=== PATIENT | male | born 1950 | race Caucasian/White ===

== ENCOUNTER → 2020-05-30 13:31 | Outpatient (BNVA) | payer OTHER, SELFPAY | PROVIDERS: PCP Pediatrics; Referring Provider Pediatrics; Visit Provider Anesthesiology | DX: M96.1 Postlaminectomy syndrome, not elsewhere classified (principal); M54.5 Low back pain; G62.9 Polyneuropathy, unspecified; E11.40 Type 2 diabetes mellitus with diabetic neuropathy, unspecified; G89.4 Chronic pain syndrome | CPT/HCPCS: 99202 ==

== ENCOUNTER 2020-09-07 11:40 | Day surgery (SDC) | payer OTHER, SELFPAY ==
[2020-09-03 13:13] VITALS: BMI 31.1
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
[2020-09-07] VITALS (9 sets, daily range): BP systolic 120–140; BP diastolic 60–77; PULSE 48–67; RESP 15–18; TEMP 36.1–36.2; O2SAT 95–99
--- NOTE | ~2020-09-07 | FL_ITS ---
EXAMINATION: XR FLUOROSCOPY WITH IMAGES CLINICAL INFORMATION: Lumbar spinal cord stimulator revision COMPARISON: None. TECHNIQUE: Fluoroscopy performed by Dr. Maykel Gupta. Fluoroscopy time: 6.8 minutes DAP: 48 mGycm2 Images: 3 FINDINGS: Images demonstrate spinal stimulator in the lower thoracic spine. FL/FL guidance in OR IMPRESSION: Fluoroscopy guidance for lumbar spinal stimulator revision.
[2020-09-07] MEDS: Lactated Ringers 1,000 ML 100 ML IVCONT (12:43)
[2020-09-07 12:54] LABS: Glucose, Whole Blood 121 mg/dL (60-115)
--- NOTE | 2020-09-07 13:40 | MHC.SHP ---
Pre-Procedural Eval Section A The patient is an INPATIENT: No Changes since office visit: Yes Patient answered all questions The History & Physical has been completed within 30 days and I have reviewed it.: No Section B Chief Complaint: Post Laminectomy Syndrome Details of Present Illness: As above Relevant Family History (Specify if Yes): No Relevant Social History: Other (specify) Present Medications: see Short Stay Collaborative assessment Medical History: No relevant PMH History of Previous Operations: Relevant previous surgery/procedure and date(s) Allergies: Allergies Allergy/AdvReac Type Severity Reaction Status Date / Time amlodipine [From Lotrel] Allergy Anaphylaxis Verified 09/07/20 12:17 benazepril [From Lotrel] Allergy Anaphylaxis Verified 09/07/20 12:17 Review of Systems Sugical H&P ROS: Negative: Constitution, Cardiovascular, Respiratory, Neurological, Psychiatric, Hem-Onc, Allergic/Immunologic, Gastrointestinal, Genitourinary, Musculoskeletal, Integumentary, Endocrine and Eyes/Ears/Nose/Throat Exam Surgical H&P Exam: Normal: HEENT, Normal: Heart, Normal: Lungs, Normal: Extremities, Normal: Abdomen, Normal: Skin and Normal: Neurological Plan Diagnosis/Plan: Unchanged I have reviewed the history and physical and performed a pertinent physical examination on my patient. No changes have occurred unless specified.
--- NOTE | 2020-09-07 17:55 | P.BOP_ITS ---
Brief Operative Note Date of Service: 09/07/20 Pre-op diagnosis: Postlaminectomy syndrome Post-op diagnosis: same Procedure: Revision of spinal cord stimulator [employer] Implants: Wave web content writer battery alpha technology [employer] and 2 epidural leads [employer]. Surgeon: Maykel Gupta MD Anesthesia: MAC Estimated blood loss (mL): 30 Condition: stable Disposition: PACU
--- NOTE | 2020-09-07 17:55 | PM.OP ---
Brief Operative Note Date of Service: 09/07/20 Pre-op diagnosis: Postlaminectomy syndrome Post-op diagnosis: same Procedure: Revision of spinal cord stimulator [employer] Implants: Wave remote mortgage underwriter battery alpha technology [employer] and 2 epidural leads [employer]. Surgeon: Maykel Gupta MD Anesthesia: MAC Estimated blood loss (mL): 30 Condition: stable Disposition: PACU
--- NOTE | 2020-09-07 17:57 | P.OP_ITS ---
Operative Note Operative Note Date of Service: 09/07/20 Narrative: is very pleasant 69 years old gentleman who came today into the operating room for revision of spinal cord stimulator [employer] implanted for the treatment of pain related to postlaminectomy syndrome which stopped functioning due to presumable leads disconnection.. Preoperatively patient received 2 g cefazolin _approximately 30 minutes before the procedure. After obtaining informed consent patient was brought to the operating room, he was positioned prone on operating table, [employer] monitors were applied and patient was deeply sedated. Time-out was performed delineating correct site, side, the nature of the procedure, patient's allergy, preoperative antibiotic. All operating room staff was participating in OR time-out procedure. Patient's entire back was prepped with ChloraPrep twice and draped with full body drape including Ioban film. Attention 1st worse focused on the area of the implanted battery since the preoperative believe was that the problem is in the disconnection of the epidural leads from extensions the patient had with reimplantation of the last battery. Alongside the previous scar in the right upper buttock local anesthetic mixture of 1% lidocaine mixed with bupivacaine 0.5% was performed. After that incision 6.5 cm long was made alongside the previous incision. The spinal cord stimulator was located at the bottom of the wound. Thorough hemostasis was obtained. After that the spinal cord stimulator battery was freed from surrounding adhesions, the anchoring sutures were severed and the device was delivered to the surface of the patient's skin. The extension leads were located. The dissection alongside the extension leads was performed until the connection with epidural leads in the wound. The extensions were thoroughly dissected and disconnected. The epidural leads were connected to testing device and again demonstrated deficiency on the existing epidural lead electrodes. The decision was made to explore the midline back wound. The battery wound was thoroughly irrigated and packed with vancomycin containing normal saline. Sterilely draped C-arm was brought of over the operating field and picture of the existing epidural leads were located on the C-arm screen. Alongside the previous scar on midline of the patient's back in the projection of T11, T12 and L1 vertebrae mixture of anesthetics was injected and straight 7 cm incision was made alongside the previous scar. Thorough hemostasis was obtained. Dissection was performed to free the existing epidural leads from surrounding adhesions. Epidural leads were pulled from the side wounds into the central wound. Attempt was made to slide blue sheath introducer into the epidural space of the patient. That was not successful. The epidural leads were removed. After that at the projection of the right pedicle of L1 vertebra 14 gauge 10 cm introducer needle was used to advance to the patient's epidural space using loss of resistance to air technique on anterior posterior and lateral views toward T12- L1 epidural interspace. When needle entered the epidural space loss of resistance felt and the guitar wire was inserted into the needle demonstrating the spread of the wire into the epidural space. After that the epidural electrode array was inserted into the needle and advanced into the posterior epidural space mid body of T7 vertebra. That was the original position of previously inserted electrode. The same procedure was repeated on the left side and the epidural lead again was advanced to the area of T7 vertebra. After that patient was awaken and stimulation was applied. Unfortunately the responses of the patient at this time were inconclusive to make educated decision about the stimulation areas. After that the C-arm was brought in and anterior posterior and lateral views were demonstrated on the screen. It was noted that the left position electrode is slightly away from the previous position of the electrodes which patient had before. The decision was made to withdraw the electrode back to the T11 vertebra and advanced it again in the epidural space slightly right to the existing midline electrode array. Again the patient was asked about the stimulation. Unfortunately no conclusion was possible to make from his responses. The decision was made to continue anchoring the electrodes and finish the procedure. The irrigation normal saline with vancomycin was applied to both wounds. The anchors were dislodged on both epidural leads and they were fastened to the prevertebral fascia of with 2-0 Tycron sutures two sutures per anchor. The wound was irrigated again. The tunneling device was used to connect both wounds. The epidural leads were dislodged into the side wound, side wound was expanded, and irrigated again. Thorough hemostasis was obtained. Anchoring sutures were provided at the most lateral superior and medial superior corners of the wound. Anchoring sutures were connected to the orifices on the body of the battery. The waverider battery was connected to epidural electrodes and the epidural electrodes were screwed down on the battery. After that the wounds were irrigated again with normal saline mixed with vancomycin. 0 Vicryl suture was applied to close both wounds and after that 2-0 Vicryl sutures were used to approximate the level of the skin. Elaina were applied to the skin level. Bacitracin ointment was applied to the staple lines. Sterile dressing was applied. The patient at this moment was awaken he was transferred toilet PACU where he received another dose of antibiotic. Cefazolin 2 g. The patient recovered uneventfully.
[2020-09-07] MEDS: oxyCODONE HCl Immed Release 5 MG TABLET 10 MG PO (18:16)
[2020-09-07] MEDS: fentaNYL citrate/PF 100 MCG/2 ML VIAL 50 MCG IVPUSH (18:25)
[2020-09-07] MEDS: ceFAZolin Sodium/Dextrose,Iso 2 GM/50 ML PIGGYBACK IV (18:29)
[2020-09-07 18:41] LABS: Glucose, Whole Blood 113 mg/dL (60-115)
== END 2020-09-07 19:05 | disposition home or self-care (01) ==
PROVIDERS: PCP Pediatrics; Visit Provider Anesthesiology
PROC: (CPT 63663; principal; 2020-09-07 14:10)
DX: M96.1 Postlaminectomy syndrome, not elsewhere classified (principal); M54.5 Low back pain; G89.4 Chronic pain syndrome; E11.42 Type 2 diabetes mellitus with diabetic polyneuropathy; E11.22 Type 2 diabetes mellitus with diabetic chronic kidney disease; I12.9 Hypertensive chronic kidney disease with stage 1 through stage 4 chronic kidney disease, or unspecified chronic kidney disease; N18.30 Chronic kidney disease, stage 3 unspecified; Z79.84 Long term (current) use of oral hypoglycemic drugs; Z79.82 Long term (current) use of aspirin; Z79.899 Other long term (current) drug therapy
CPT/HCPCS: 63663; 63685; 82947; C1778; C1787; C1820; J0690; J2250; J3010; J3370

== ENCOUNTER → 2020-09-13 13:16 | Outpatient (BNVA) | payer OTHER, SELFPAY | PROVIDERS: PCP Pediatrics; Visit Provider Anesthesiology | DX: M96.1 Postlaminectomy syndrome, not elsewhere classified (principal); M54.5 Low back pain; G62.9 Polyneuropathy, unspecified; E11.40 Type 2 diabetes mellitus with diabetic neuropathy, unspecified; G89.4 Chronic pain syndrome | CPT/HCPCS: 99212 ==

== ENCOUNTER 2020-09-20 12:56 | Outpatient (REF) | payer OTHER, SELFPAY ==
--- NOTE | ~2020-09-20 | XR_ITS ---
EXAMINATION: XR THORACOLUMBAR SPINE CLINICAL INFORMATION: Post laminectomy syndrome COMPARISON: Intraoperative fluoroscopy 09/07/2020 TECHNIQUE: 3 views of the thoracic spine including swimmer's view FINDINGS: Bone alignment is normal. No fracture or dislocation is seen. There are 2 leads in the spinal canal with top at the T5-T6 and T7-T8 disc space levels. The lung volumes are low. The heart may be enlarged. There are median sternotomy wires. XR/XR thoracic spine 2V IMPRESSION: 2 leads in the spinal canal at top of the T5-T6 and T7-T8 disc space levels.
== END 2020-09-20 12:57 | disposition home or self-care (01) ==
LOC: HO.XRAY 12:56
PROVIDERS: PCP Pediatrics; Visit Provider Anesthesiology
DX: M96.1 Postlaminectomy syndrome, not elsewhere classified (principal); M54.5 Low back pain; G89.4 Chronic pain syndrome; E11.40 Type 2 diabetes mellitus with diabetic neuropathy, unspecified; G62.9 Polyneuropathy, unspecified
CPT/HCPCS: 72070; 99212

== ENCOUNTER → 2020-10-08 13:45 | Outpatient (BNVA) | payer OTHER, SELFPAY | PROVIDERS: PCP Pediatrics; Visit Provider Anesthesiology | DX: M96.1 Postlaminectomy syndrome, not elsewhere classified (principal); M54.5 Low back pain; G62.9 Polyneuropathy, unspecified; G89.4 Chronic pain syndrome; E11.40 Type 2 diabetes mellitus with diabetic neuropathy, unspecified | CPT/HCPCS: 99212 ==

== ENCOUNTER 2020-11-23 10:46 | Day surgery (SDC) | payer OTHER, SELFPAY ==
[2020-11-19 11:25] VITALS: BMI 31.1
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
[2020-11-23] VITALS (9 sets, daily range): BP systolic 95–134; BP diastolic 53–69; PULSE 44–70; RESP 14–18; TEMP 36.2–36.6; O2SAT 96–99
--- NOTE | ~2020-11-23 | FL_ITS ---
EXAMINATION: XR FLUOROSCOPY WITH IMAGES CLINICAL INFORMATION: Lumbar spine cord stimulator revision. COMPARISON: Fluoroscopy guidance 09/17/2020. TECHNIQUE: Fluoroscopy performed by Dr. Gupta. Fluoroscopy time: 0.2 minutes DAP: 9.1 mGycm2 Images: 2 FINDINGS: This AP and lateral images revealing a spinal cord stimulator tip from the T7 through T8 vertebrae. FL/FL guidance in OR IMPRESSION: Fluoroscopy guidance was provided to the physician for lumbar spinal stimulator revision .
[2020-11-23] MEDS: Lactated Ringers 1,000 ML 50 ML IVCONT (11:35)
[2020-11-23 11:45] LABS: Glucose, Whole Blood 112 mg/dL (60-115)
--- NOTE | 2020-11-23 13:36 | MHC.SHP ---
Pre-Procedural Eval Section A The patient is an INPATIENT: No Changes since office visit: Yes Patient answered all questions The History & Physical has been completed within 30 days and I have reviewed it.: No Section B Chief Complaint: Postlaminectomy Syndrome Details of Present Illness: lead migration of the [employer]. Relevant Family History (Specify if Yes): No Present Medications: see Short Stay Collaborative assessment Medical History: No relevant PMH History of Previous Operations: No relevant previous surgery Allergies: Allergies Allergy/AdvReac Type Severity Reaction Status Date / Time amlodipine [From Lotrel] Allergy Anaphylaxis Verified 11/23/20 11:02 benazepril [From Lotrel] Allergy Anaphylaxis Verified 11/23/20 11:02 Review of Systems Sugical H&P ROS: Negative: Constitution, Cardiovascular, Respiratory, Neurological, Psychiatric, Hem-Onc, Allergic/Immunologic, Gastrointestinal, Genitourinary, Musculoskeletal, Integumentary, Endocrine and Eyes/Ears/Nose/Throat Exam Surgical H&P Exam: Normal: HEENT, Normal: Heart, Normal: Lungs, Normal: Extremities, Normal: Abdomen, Normal: Skin and Normal: Neurological Plan Diagnosis/Plan: Unchanged I have reviewed the history and physical and performed a pertinent physical examination on my patient. No changes have occurred unless specified.
--- NOTE | 2020-11-23 16:28 | PM.OP ---
Brief Operative Note Date of Service: 11/23/20 Pre-op diagnosis: Postlaminectomy syndrome, presence of spinal cord stimulator. Post-op diagnosis: same Procedure: Revision of the spinal cord stimulator [employer] Implants: One epidural lead was inserted and it replaced migrated away epidural lead. Surgeon: Maykel Gupta MD Anesthesia: MAC Was an Autocad Technician used for this Procedure?: No Estimated blood loss (mL): 15 Pathology: none sent Condition: stable Disposition: PACU
--- NOTE | 2020-11-23 16:29 | W.PM.OPN ---
Operative Note Operative Note Date of Service: 09/07/20 Narrative: is very pleasant 69 years old gentleman who came today into the operating room for revision of spinal cord stimulator [employer] implanted for the treatment of pain related to postlaminectomy syndrome which stopped functioning due to presumable leads dislodgement. Originally preoperatively the x-ray exam revealed migration of the right epidural lead to the level of T6-T7 vertebral interspace from the position of the T8- T9 space where the lead waspositioned on the previous revision. ( Off note - this is a forth revision of this device. Originally the device was implanted by Dr. Cho and soon after the implantation was revised due to leads dislodgment) Preoperatively patient received 2 g cefazolin _approximately 30 minutes before the procedure. After obtaining informed consent patient was brought to the operating room, he was positioned prone on operating table, [place] [employer] monitors were applied and patient was deeply sedated. Time-out was performed delineating correct site, side, the nature of the procedure, patient's allergy, preoperative antibiotic. All operating room staff was participating in OR time-out procedure. Patient's entire back was prepped with ChloraPrep twice and draped with full body drape including [place] film. performed. Sterilely draped C-arm was brought of over the operating field and picture of the existing epidural leads were located on the C-arm screen. The right electrode was still positioned at the projection of T6- T7 vertebral interspace however the left positioned electrode was discovered almost completely dislodged outside the epidural interspace and innthe projection of the T12 L1 vertebrae. Alongside the previous scar on midline of the patient's back in the projection of T11, T12 and L1 vertebrae mixture of anesthetics was injected and straight 7 cm incision was made alongside the previous scar. Thorough hemostasis was obtained. Dissection was performed to free the existing epidural leads from surrounding adhesions. The left epidutal lead was completely within the subcutaneous tissues and outside of the spinal canal. It was severed using suture scissors from its distal part connecting the lead to the battery. After that the anchoring sutures of the right epidural lead were severed, the adhesions were dissected and the fixation screw was loosened. the right lead was under C-arm guidance withdrawn into the epidural interspace at the level of mid T8 vertebra the fixation screw on the anchor was tightened again until 3 clicks were heard. After that two Ticron sutures were used to suture the anchor to the prevertebral fascia with the sutures going twice around the body of the anchor and through the prevertebral fascia. After that attention was concentrated on the insertion of the left epidural lead. Tuohy introducer epidural 14 g needle was inserted in the projection of the left L2 pedical and advanced toward T12- L1 epidural interspace under x-ray guidance with AP and lateral views. loss of resistance technique to air was used to locate epidural space. The epidural lead was inserted through the needle and it was advanced into the epidural interspace in the strict midline fasion. The introducer needle was withdrawn, the stihlete was wisdrawn, was care was taken to keep the epidural lead in the position. It was stopped at mid T8 epidural interspace. After that another anchoring device was advanced on the epidural lead until the level of the prevertebral fascia. Two ticron 1.0 sutures were used to suture the the anchoring device to the prevertebral fascia. After that the anchor screw was tightened until 3 click were heard. Attention after that was shifted to the battery site. Local ansthetic mixture was injected alongside the right upper buttock scar over the battery. After that incision 6.5 cm long was made alongside the previous incision. The spinal cord stimulator was located at the bottom of the wound. Thorough hemostasis was obtained. After that the spinal cord stimulator battery was freed from surrounding adhesions, the anchoring sutures were severed and the device was delivered to the surface of the patient's skin. The leads were located. The old left epidural lead was located on the battery body by withdrawing the severed portion of the lead into the battery site wound.The fixation screw was loosen on the battery and the lead was withdrawn and discarded. Thorough irrigation was performed of the both wounds using vancomycin containing saline irrigation. Tunneling device was used to connect midline incision and battery site incision. The newly implanted left epidural lead was dislodged into the site battery wound and connected into the port of the battery. fixation screw on the battery was tightened until three clicks were heard. After that the anchoring sutures Ticron 1.0 were reapplied in the battery pocket wound at the superior medial and superior lateral corners of the wound. they were connected to the orifices on the body of the battery. The epidural leads were gathered behind the body of the battery, impedance was checked and demonstrated good all contacts impedance, the battery with the leads was inserted into the wound and anchoring sutures were tide. After that the wounds were irrigated again with normal saline mixed with vancomycin. 0 Vicryl suture was applied to close both wounds and after that 2-0 Vicryl sutures were used to approximate the level of the skin. [place] were applied to the skin level. Bacitracin ointment was applied to the staple lines. Sterile dressing was applied. The patient at this moment was awaken he was transferred to PACU
[2020-11-23] MEDS: oxyCODONE HCl Immed Release 5 MG TABLET 10 MG PO (16:43)
[2020-11-23] MEDS: fentaNYL citrate/PF 100 MCG/2 ML VIAL 50 MCG IVPUSH (17:02)
--- NOTE | 2020-11-23 18:06 | PC.NURSE ---
Pt brought to waiting car by RN. Teaching reinforced with . aware that pt has had pain medication and that he will need his walker and assistance getting into house. Pt states that son lives nearby and in agreement with plan to call son for transfer assistance from car to house
== END 2020-11-23 17:50 ==
LOC: HO.SSS 10:50
PROVIDERS: PCP Pediatrics; Visit Provider Anesthesiology
PROC: (CPT 63663; principal; 2020-11-23 12:00)
DX: T85.122A Displacement of implanted electronic neurostimulator of spinal cord electrode (lead), initial encounter (principal); R20.2 Paresthesia of skin; M96.1 Postlaminectomy syndrome, not elsewhere classified; Y82.8 Other medical devices associated with adverse incidents; Y92.9 Unspecified place or not applicable; G89.4 Chronic pain syndrome; M54.5 Low back pain; E11.40 Type 2 diabetes mellitus with diabetic neuropathy, unspecified; E11.22 Type 2 diabetes mellitus with diabetic chronic kidney disease; I12.9 Hypertensive chronic kidney disease with stage 1 through stage 4 chronic kidney disease, or unspecified chronic kidney disease; N18.30 Chronic kidney disease, stage 3 unspecified; Z79.84 Long term (current) use of oral hypoglycemic drugs; Z86.16 Personal history of COVID-19
CPT/HCPCS: 63663; 63688; 82947; C1713; C1778; C1787; J0690; J2250; J3010; J3370

== ENCOUNTER → 2020-11-29 11:19 | Outpatient (BNVA) | payer OTHER, SELFPAY | PROVIDERS: PCP Pediatrics; Visit Provider Anesthesiology | DX: M96.1 Postlaminectomy syndrome, not elsewhere classified (principal); M54.5 Low back pain; E11.40 Type 2 diabetes mellitus with diabetic neuropathy, unspecified; E11.42 Type 2 diabetes mellitus with diabetic polyneuropathy; G89.4 Chronic pain syndrome | CPT/HCPCS: 99212 ==

== ENCOUNTER → 2020-12-06 11:18 | Outpatient (BNVA) | payer OTHER, SELFPAY | PROVIDERS: PCP Pediatrics; Visit Provider Anesthesiology | DX: M96.1 Postlaminectomy syndrome, not elsewhere classified (principal); M54.5 Low back pain; G62.9 Polyneuropathy, unspecified; G89.4 Chronic pain syndrome; E11.40 Type 2 diabetes mellitus with diabetic neuropathy, unspecified | CPT/HCPCS: 99212 ==